=== PATIENT | male | born 2000 | race Caucasian/White ===

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

== ENCOUNTER 2020-02-15 16:17 | Emergency (ER) | payer BC, SELFPAY ==
[2020-02-15 16:54] VITALS: BP 131/76; PULSE 88; RESP 18; TEMP 36.6; O2SAT 100; BMI 19.2
--- NOTE | 2020-02-15 17:17 | HMH.EDUTC ---
[facility] [place] Disposition Clinical Impression: Headache Qualifiers: Headache type: unspecified Headache chronicity pattern: unspecified pattern Intractability: not intractable Qualified Code(s): R51 - Headache Disposition: Home, Self-Care Condition on Discharge: Good Instructions: DI for Migraine, DI for Headache Additional Instructions: Go home and take over the counter Benadryl and lay down and try to sleep off remainder of migraine headache *Follow up with Family Doctor for further evaluation and treatment of Migraines Return if needed Straight to ER if any life threatening symptoms Referrals: PCP,No [Primary Care Provider] - As needed Forms: Work/School Release Time of Disposition: 17:31 Medical Decision Making - Shayan Inquiry Pt receiving controlled substance: No Shayan was queried for this patient: No Vital Signs: 02/15/20 16:54 Temperature 97.8 F Temperature Source Oral Pulse Rate [Right Brachial] 88 Respiratory Rate 18 Blood Pressure [Right Arm] 131/76 Blood Pressure Mean [Right Arm] 94 Blood Pressure Source [Right Arm] Automatic Cuff Blood Pressure Position [Right Arm] Sitting 02 Sat by Pulse Oximetry 100 Oxygen Delivery Method Room Air Orders (Tests/Meds): ED MEDICATIONS Discontinued Medications Generic Name Dose Route Start Last Admin Trade Name Freq PRN Reason Stop Dose Admin Ketorolac Tromethamine 60 mg 02/15/20 17:11 02/15/20 17:15 Toradol 60mg/2ml Vial IM 02/15/20 17:12 60 mg ONCE ONE Administration Medical Decision Narrative: Patient states that migraine is almost gone after injection [facility] HPI - General Stated complaint: Migraine Time Seen by Provider: 02/15/20 17:17 Mode of Arrival: Ambulatory Source of Information: Patient Limitations: No Limitations Description of Symptoms (Recalled from Triage Doc. by RN): PATIENT C/O MIGRAINE X 2 DAYS HEENT Symptoms (Recalled from RN notes): Yes Resp Symptoms (Recalled from RN notes): No Skin Symptoms (Recalled from RN notes): No MS Symptoms (Recalled from RN notes): No Functional Status (Recalled from RN notes): WNL - History of Present Illness Provider Complaint: Patient states that he has a history of migraine headaches and has had one for the last couple of days States that he took some over the counter Tyelnol and it hasnt helped much State sthat last time he had to come in and get a shot - Related Data Allergies Allergy/AdvReac Type Severity Reaction Status Date / Time No Known Allergies Allergy Verified 07/14/18 08:43 - Worker's Comp Is this a Worker's Comp case?: No [facility] History - Hepatitis A Screen Drug use history?: No High risk sexual behaviors?: No History of sexually transmitted infection?: No Currently employed?: No Childcare worker?: No Do you have indoor plumbing?: Yes Do you have electricity?: Yes Attestation statement:: This patient has been screened for Hepatitis A risk factors. I have reviewed the patient's past medical history: Yes Medical History: Reports:: Anxiety, Depression Denies:: Cancer, Diabetes Mellitus Type 1, Diabetes Mellitus Type 2, MRSA Other Medical History: Reports: Other Comment: ANGER ISSUES Other Surgeries: Yes: No Previous Surgery, Other Amputation: No Fractures: No Comment: Oral surgery - Social History Smoking Status: Current every day smoker Tobacco Type: cigarettes # Packs/Day (cigarettes): 1 #Yrs smoked (if former smoker): 2 Alcohol Intake: never Alcohol Intake Frequency:: other Substance Use Type: denies use Occupational Status: other Housing: apartment Household Members: family - Psychiatric History Pschychiatric History:: Reports:: Anxiety, Depression Family Hx:: No significant family history ROS Obtained: Yes All systems reviewed & no additional complaints, Yes Systems reviewed as appropriate & no additional complaints - Constitutional Constitutional: Reports headache(s) - Eyes Eyes: Reports system reviewed and no additional complaint
[2020-02-15 17:33] VITALS: BP 131/76; PULSE 88; RESP 18; TEMP 36.6; O2SAT 100
== END 2020-02-15 17:35 | disposition home or self-care (01) ==
PROVIDERS: Emergency Provider Nurse Practitioner
DX: G43.909 Migraine, unspecified, not intractable, without status migrainosus (principal); F41.8 Other specified anxiety disorders; F17.210 Nicotine dependence, cigarettes, uncomplicated
CPT/HCPCS: 96372; 99201

== ENCOUNTER 2020-03-26 19:14 | Emergency (ER) | payer BC, SELFPAY ==
[2020-03-26 19:43] VITALS: BP 111/67; PULSE 103; RESP 16; TEMP 37; O2SAT 97; BMI 18.8
--- NOTE | 2020-03-26 19:46 | HMH.EDUTC ---
[facility] [place] Disposition Clinical Impression: Tonsillitis Disposition: Home, Self-Care Condition on Discharge: Good Instructions: Preventing the Spread of Coronavirus Discharge Instructions Prescriptions: Amoxicillin [Amoxicillin 875MG Tab] 875 mg PO Q12H #20 tab Transmission Status: Pending to [facility] # Promethazine/Dextromethorphan [Promethazine-Dm Syrup] 5 ml PO Q6HP PRN 10 Days #180 syrup PRN Reason: Cough Transmission Status: Pending to [facility] # Referrals: Michael Muñoz MD [Primary Care Provider] - Time of Disposition: 19:49 Medical Decision Making - Shayan Inquiry Pt receiving controlled substance: No - Lab Data Lab results reviewed: Yes: I reviewed the patient's lab results. Orders (Tests/Meds): ORDERS Category Date Time Status Covid-19 Nasal PCR ([facility]) Routine Lab 03/26/20 19:25 Ordered [facility] [place] HPI - General Stated complaint: cough, vomiting Time Seen by Provider: 03/26/20 19:46 - History of Present Illness Provider Complaint: Cough, sore throat, vomiting and diarrhea, fever since this am. He does smoke. Cough is productive. No known exposure to COVID19. Onset (ago): day(s) (1) Location: chest Relieving factors: none Exacerbating factors: none Associated symptoms: cough, fever/chills, nausea/vomiting Treatments prior to arrival: none - Related Data Previous Rx's Medication Instructions Recorded Amoxicillin [Amoxicillin 875MG 875 mg PO Q12H #20 tab 03/26/20 Tab] Promethazine/Dextromethorphan 5 ml PO Q6HP PRN 10 Days #180 syrup 03/26/20 [Promethazine-Dm Syrup] Allergies Allergy/AdvReac Type Severity Reaction Status Date / Time No Known Allergies Allergy Verified 07/14/18 08:43 [facility] History - Hepatitis A Screen Attestation statement:: This patient has been screened for Hepatitis A risk factors. I have reviewed the patient's past medical history: Yes Medical History: Reports:: Anxiety, Depression Denies:: Cancer, Diabetes Mellitus Type 1, Diabetes Mellitus Type 2, MRSA Other Medical History: Reports: Other Comment: ANGER ISSUES Other Surgeries: Yes: No Previous Surgery, Other Amputation: No Fractures: No Comment: Oral surgery - Social History Smoking Status: Current every day smoker Tobacco Type: cigarettes # Packs/Day (cigarettes): 1 #Yrs smoked (if former smoker): 2 Alcohol Intake: never Alcohol Intake Frequency:: other Substance Use Type: denies use Occupational Status: other Housing: apartment Household Members: family - Psychiatric History Pschychiatric History:: Reports:: Anxiety, Depression Family Hx:: No significant family history ROS Obtained: Yes All systems reviewed & no additional complaints - Constitutional Constitutional: Reports body ache, Reports chills, Reports fever(s) - ENT Ears, Nose, Mouth, and Throat: Reports sore throat - Respiratory Respiratory: Yes cough - Gastrointestinal Gastrointestingal: Reports: diarrhea, vomiting Physical Exam - General General appearance: alert, in no apparent distress - Head Head exam: atraumatic, normocephalic, normal inspection - Eye Eye exam: Present: normal appearance, PERRL, EOMI - ENT ENT exam: Present: normal exam, normal oropharynx, mucous membranes moist, TM's normal bilaterally, normal external ear exam - Expanded ENT Exam Throat exam: Present: tonsillar erythema, tonsillomegaly - Neck Neck exam: Present: normal inspection, full ROM, trachea midline. Absent: meningismus, lymphadenopathy - Chest Chest inspection: Present: normal inspection, symmetric chest wall rise. Absent: tenderness - Respiratory Respiratory exam: Present: wheezes, other (croupy cough). Absent: respiratory distress - Cardiovascular Cardiovascular exam: Present: regular rate, normal rhythm. Absent: JVD - Abdominal Exam Abdominal exam: Present: soft, normal bowel sounds. Absent: distention, tenderness, guarding - Extremities Exam Extremities
[2020-03-26 19:56] LABS: UTC Strep Screen (Rapid) Negative (Negative)
[2020-03-26 20:12] VITALS: BP 111/67; PULSE 103; RESP 16; TEMP 37; O2SAT 97
--- NOTE | 2020-03-27 14:54 | PC.NURSE ---
0942 PATIENT NOTIFIED OF NEG COVID TEST RESULTS
== END 2020-03-26 20:12 | disposition home or self-care (01) ==
PROVIDERS: Emergency Provider Physician Assistant; PCP Emergency Medicine
DX: Z20.828 Contact with and (suspected) exposure to other viral communicable diseases (principal); J03.90 Acute tonsillitis, unspecified; F41.8 Other specified anxiety disorders
CPT/HCPCS: 87880; 99201; U0003

== ENCOUNTER 2020-08-10 11:43 | Emergency (ER) | payer BC, SELFPAY ==
[2020-08-10 11:53] VITALS: BP 119/74; PULSE 89; RESP 18; TEMP 36.8; O2SAT 97; BMI 19.6
[2020-08-10 12:01] VITALS: BP 120/73; PULSE 91; RESP 15; TEMP 36.6
--- NOTE | 2020-08-10 12:02 | HMH.EDUTC ---
[facility] [place] Disposition Clinical Impression: Encounter for laboratory testing for COVID-19 virus Disposition: Home, Self-Care Condition on Discharge: Good Instructions: DI for COVID-19 (Suspected or Confirmed ), Coronavirus Disease 2019, Preventing the Spread of Coronavirus Discharge Instructions Additional Instructions: *Monitor Temp, Over the counter Motrin or Tylenol as directed/as needed Tylenol every 4 hours and Motrin every 6 hours (as long as your family doctor has told you that you can take it) for fever or pain. and straight to ER if unable to lower temp less than 101.0 after medication given * Follow up IMMEDIATELY for new or worsening symptoms or no Noticeable improvement over the next 48-72 hours. 911 for difficulty breathing or swallowing You were tested for today for COVID19 your test result should be back in the next 24-48 hours, you may call to the [facility] to see if your test results are back in the next 48 hours [phone] [facility] hours are 9am-9pm You was given a handout with instructions for Self Quarantine and Self isolation for while you wait on test results and what to do if they are positive If you are positive the Health Dept will be contacting you also Referrals: Micheal Muñoz MD [Primary Care Provider] - As needed Forms: Work/School Release Time of Disposition: 12:04 Medical Decision Making - Shayan Inquiry Pt receiving controlled substance: No Shayan was queried for this patient: No Vital Signs: 08/10/20 11:53 08/10/20 12:01 Temperature 98.2 F 98 F Temperature Source Oral Pulse Rate 91 H Pulse Rate [Right] 89 Respiratory Rate 18 15 Blood Pressure 120/73 Blood Pressure [Right Arm] 119/74 Blood Pressure Mean [Right Arm] 89 Blood Pressure Source [Right Arm] Automatic Cuff Blood Pressure Position [Right Arm] Sitting 02 Sat by Pulse Oximetry 97 Oxygen Delivery Method Room Air Orders (Tests/Meds): ORDERS Category Date Time Status Covid-19 Nasal PCR ([facility]) Routine Lab 08/10/20 11:57 Ordered [facility] HPI - General Stated complaint: sore throat,diarrhea Time Seen by Provider: 08/10/20 12:02 Mode of Arrival: Ambulatory Source of Information: Patient Limitations: No Limitations Description of Symptoms (Recalled from Triage Doc. by RN): pt is having a dry cough and diarhea. work is requiring him to get a covid test. HEENT Symptoms (Recalled from RN notes): No Resp Symptoms (Recalled from RN notes): Yes (cough) Skin Symptoms (Recalled from RN notes): No MS Symptoms (Recalled from RN notes): No Functional Status (Recalled from RN notes): na - History of Present Illness Provider Complaint: Patient state that yesterday at work he had a little cough and some diarrhea State that today his symptoms are gone but work will not let him return until he gets COVID tested States that he is no longer having cough and diarrhea and just needs COVID test - Related Data Previous Rx's Medication Instructions Recorded Amoxicillin [Amoxicillin 875MG 875 mg PO Q12H #20 tab 03/26/20 Tab] Promethazine/Dextromethorphan 5 ml PO Q6HP PRN 10 Days #180 syrup 03/26/20 [Promethazine-Dm Syrup] Allergies Allergy/AdvReac Type Severity Reaction Status Date / Time No Known Allergies Allergy Verified 07/14/18 08:43 - Worker's Comp Is this a Worker's Comp case?: No [facility] History - Hepatitis A Screen Drug use history?: No High risk sexual behaviors?: No History of sexually transmitted infection?: No Currently employed?: No Childcare worker?: No Do you have indoor plumbing?: Yes Do you have electricity?: Yes Attestation statement:: This patient has been screened for Hepatitis A risk factors. I have reviewed the patient's past medical history: Yes Medical History: Reports:: Anxiety, Depression Denies:: Cancer, Diabetes Mellitus Type 1, Diabetes Mellitus Type 2, MRSA Other Medical History: Reports: Other Comment: ANGER ISSUES Other Surgeries: Yes: No Previous Surgery, Other [place]
== END 2020-08-10 12:08 | disposition home or self-care (01) ==
PROVIDERS: Emergency Provider Nurse Practitioner; PCP Emergency Medicine
DX: Z20.822 Contact with and (suspected) exposure to COVID-19 (principal); J02.9 Acute pharyngitis, unspecified; F41.8 Other specified anxiety disorders; F17.210 Nicotine dependence, cigarettes, uncomplicated
CPT/HCPCS: 99202; G0463; U0003

== ENCOUNTER 2021-01-25 09:16 | Emergency (ER) | payer BC, SELFPAY ==
[2021-01-25 10:20] VITALS: BP 115/62; PULSE 81; RESP 18; TEMP 37.1; O2SAT 98; BMI 19.2
--- NOTE | 2021-01-25 10:26 | HMH.EDUTC ---
[facility] [place] Disposition Clinical Impression: Encounter for laboratory testing for COVID-19 virus Sinusitis Qualifiers: Sinusitis location: unspecified location Chronicity: unspecified Qualified Code(s): J32.9 - Chronic sinusitis, unspecified Disposition: Home, Self-Care Condition on Discharge: Good Instructions: DI for COVID-19 (Suspected or Confirmed ), Preventing the Spread of Coronavirus Discharge Instructions Additional Instructions: *Monitor Temp, Over the counter Motrin or Tylenol as directed/as needed Tylenol every 4 hours and Motrin every 6 hours (as long as your family doctor has told you that you can take it) for fever or pain. and straight to ER if unable to lower temp less than 101.0 after medication given Follow up IMMEDIATELY for new or worsening symptoms or no Noticeable improvement over the next 48-72 hours. 911 for difficulty breathing or swallowing You were tested for today for COVID19 your test result should be back in the next 24-48 hours, you was given instructions on how to [facility] the [facility] for your results. If you do not have internet or access you may call the [facility]. You was given a handout with instructions for Self Quarantine and Self isolation for while you wait on test results and what to do if they are positive If you are positive the Health Dept will be contacting you also Make sure to take your Vitamins Vit. C Vit D and Zinc if you can take them Prescriptions: Amoxicillin/Potassium Clav [Augmentin 875-125 Tablet] 1 tab PO Q12H 7 Days #14 tab Transmission Status: Pending to [facility] Brompheniramine/Pseudoephed/Dm [Bromfed Dm Cough Syrup] 5 - 10 ml PO Q46H PRN #200 ml PRN Reason: Cough Transmission Status: Pending to [facility] [id number] methylPREDNISolone [Medrol 4mg tab] 4 mg PO DIRECTED #21 tab Transmission Status: Pending to [facility] Referrals: Michael Muñoz MD [Primary Care Provider] - As needed Forms: Work/School Release Time of Disposition: 10:32 Medical Decision Making - Shayan Inquiry Pt receiving controlled substance: No Shayan was queried for this patient: No Vital Signs: 01/25/21 10:20 Temperature 98.8 F Temperature Source Oral Pulse Rate [Right] 81 Respiratory Rate 18 Blood Pressure [Right Arm] 115/62 Blood Pressure Mean [Right Arm] 79 02 Sat by Pulse Oximetry 98 Orders (Tests/Meds): ORDERS Category Date Time Status Covid-19 Nasal PCR ([facility]) Routine Lab 01/25/21 10:15 Received [facility] HPI - General Stated complaint: headache,runny nose, covid test Time Seen by Provider: 01/25/21 10:26 Description of Symptoms (Recalled from Triage Doc. by RN): COVID TEST, COUGH & URIARTE X1 WEEK, NO EXPOSURE, NEED COVID TEST FOR WORK HEENT Symptoms (Recalled from RN notes): No Resp Symptoms (Recalled from RN notes): No Skin Symptoms (Recalled from RN notes): No MS Symptoms (Recalled from RN notes): No Functional Status (Recalled from RN notes): WNL - History of Present Illness Provider Complaint: Patient states that he has been having sinus congestion and pressure for over a week with cough and sore throat State that he thought it was just allergies so has been taking benadryl States that drainage from nose is yellowish green and feesl like it causes pressure behind his eyes State that he needed to come in and get a COVID test for work - Related Data Previous Rx's Medication Instructions Recorded amoxicillin 500 mg tablet 500 mg PO BID 10 Days #20 tab 09/22/20 Amoxicillin/Potassium Clav 1 tab PO Q12H 7 Days #14 tab 01/25/21 [Augmentin 875-125 Tablet] Brompheniramine/Pseudoephed/Dm 5 - 10 ml PO Q46H PRN #200 ml 01/25/21 [Bromfed Dm Cough Syrup] methylPREDNISolone [Medrol 4mg 4 mg PO DIRECTED #21 tab 01/25/21 tab] Allergies Allergy/AdvReac Type Severity Reaction Status Date / Time No Known Allergies Allergy Verified 01/25/21 10:24 - Worker's Comp Is this a Worker's Comp case?: No [facility] Histo
[2021-01-25 10:51] VITALS: BP 115/62; PULSE 81; RESP 18; TEMP 37.1; O2SAT 98
== END 2021-01-25 10:52 | disposition home or self-care (01) ==
PROVIDERS: Emergency Provider Nurse Practitioner; PCP Emergency Medicine
DX: Z20.822 Contact with and (suspected) exposure to COVID-19 (principal)
CPT/HCPCS: 99202; G0463; U0003

== ENCOUNTER → 2021-01-30 20:26 | Outpatient (CLI) | payer BC, SELFPAY | PROVIDERS: Visit Provider Nurse Practitioner Family | DX: Z20.822 Contact with and (suspected) exposure to COVID-19 (principal) | CPT/HCPCS: C9803; U0003; U0005 ==

== ENCOUNTER 2021-05-19 15:54 | Emergency (ER) | payer OTHER, BC, SELFPAY ==
[2021-05-19 16:04] VITALS: PULSE 93; RESP 18; O2SAT 98; BMI 19.1
[2021-05-19 17:00] VITALS: BP 130/78; PULSE 93; RESP 18; TEMP 36.9; O2SAT 98; BMI 19.2
--- NOTE | 2021-05-19 17:30 | HMH.EDUTC ---
[facility] Disposition Clinical Impression: Laceration of right thumb Qualifiers: Encounter type: initial encounter Damage to nail status: without damage Foreign body presence: without foreign body Qualified Code(s): S61.011A - Laceration without foreign body of right thumb without damage to nail, initial encounter Puncture wound of right thumb Qualifiers: Encounter type: initial encounter Qualified Code(s): S61.031A - Puncture wound without foreign body of right thumb without damage to nail, initial encounter Disposition: Home, Self-Care Condition on Discharge: Good Instructions: How to Care for a Laceration After Repair, DI for Laceration Repair -- Simple, DI for Puncture Wound Additional Instructions: Keep the wound clean and dry. Keep a dressing on it if you are going to be getting it dirty. Watch the for signs of infection, such as redness, swelling, drainage, fever. etc. Take tylenol or ibuprofen for pain. Follow up with your regular doctor. Return in 10 to 12 days to have the sutures removed. GO TO THE ER FOR ANY WORSENING SYMPTOMS OR CONCERNS. Prescriptions: cephALEXin [cephALEXin 500mg capsule] 500 mg PO Q6H 10 Days #40 cap Transmission Status: Received by [facility] Referrals: Michael Muñoz MD [Primary Care Provider] - Time of Disposition: 19:13 Medical Decision Making - Medical Records Medical records reviewed: No: I reviewed the patient's medical records. - Shayan Inquiry Pt receiving controlled substance: No Vital Signs: 05/19/21 16:04 05/19/21 17:00 05/19/21 19:02 Temperature 98.4 F 98.4 F Temperature Source Oral Pulse Rate 93 H Pulse Rate [Left Radial] 93 H 93 H Respiratory Rate 18 18 18 Blood Pressure 130/78 Blood Pressure [Left Arm] 130/78 Blood Pressure Mean [Left Arm] 95 Blood Pressure Source [Left Arm] Automatic Cuff Blood Pressure Position [Left Arm] Sitting 02 Sat by Pulse Oximetry 98 98 Oxygen Delivery Method Room Air Room Air Orders (Tests/Meds): ED MEDICATIONS Discontinued Medications Generic Name Dose Route Start Last Admin Trade Name Freq PRN Reason Stop Dose Admin Cephalexin HCl 500 mg 05/19/21 19:02 05/19/21 19:16 Cephalexin 500mg Capsule PO 05/19/21 19:03 500 mg ONCE ONE Administration Tetanus/Reduced Diphtheria/Acell Pertussis 0.5 ml 05/19/21 17:16 05/19/21 17:20 Tet/Diphth/Pert-Adult 0.5ml Syringe IM 05/19/21 17:17 0.5 ml .ONCE ONE Administration Medical Decision Narrative: He refused an x-ray of his hand [facility] HPI - General Stated complaint: WC @1230 lac to R thumb Time Seen by Provider: 05/19/21 17:30 Mode of Arrival: Ambulatory Source of Information: Patient Limitations: No Limitations Description of Symptoms (Recalled from Triage Doc. by RN): PATIENT C/O LACERATION TO RIGHT THUMB AFTER GETTING IT CAUGHT IN CLAMP AT WORK. PATIENT IS NOT UP TO DATE ON TDAP HEENT Symptoms (Recalled from RN notes): No Resp Symptoms (Recalled from RN notes): No Skin Symptoms (Recalled from RN notes): Yes MS Symptoms (Recalled from RN notes): No Functional Status (Recalled from RN notes): WNL - History of Present Illness Provider Complaint: He was at work. While putting a metal clamp on a hose, the end of the metal clamp went through the side of his thumb and then came out about 1 cm on around the thumb. This created 2 lacerations. He denies that there could be any foreign body in the wound. He denies there was any crushing or pinching injury to his thumb. His tetanus immunization is not up to date. - Related Data Previous Rx's Medication Instructions Recorded Amoxicillin/Potassium Clav 1 tab PO Q12H 7 Days #14 tab 01/25/21 [Augmentin 875-125 Tablet] Brompheniramine/Pseudoephed/Dm 5 - 10 ml PO Q46H PRN #200 ml 01/25/21 [Bromfed Dm Cough Syrup] methylPREDNISolone [Medrol 4mg 4 mg PO DIRECTED #21 tab 01/25/21 tab] cephALEXin [cephALEXin 500mg 500 mg PO Q6H 10 Days #40 c
[2021-05-19 19:02] VITALS: BP 130/78; PULSE 93; RESP 18; TEMP 36.9; O2SAT 98
== END 2021-05-19 19:19 | disposition home or self-care (01) ==
PROVIDERS: Emergency Provider Nurse Practitioner Family; PCP Emergency Medicine
DX: S61.011A Laceration without foreign body of right thumb without damage to nail, initial encounter (principal); W22.8XXA Striking against or struck by other objects, initial encounter; Y92.63 Factory as the place of occurrence of the external cause; Y99.0 Civilian activity done for income or pay; Z23 Encounter for immunization
CPT/HCPCS: 12001; 90471; 90715; 99202; G0463

== ENCOUNTER → 2021-06-05 09:46 | Outpatient (CLI) | payer BC, SELFPAY | PROVIDERS: PCP Emergency Medicine; Visit Provider Nurse Practitioner | DX: U07.1 COVID-19 (principal) | CPT/HCPCS: C9803; U0003; U0005 ==

== ENCOUNTER 2022-03-29 03:45 | Emergency (ER) | payer BC, SELFPAY ==
[2022-03-29 03:48] VITALS: BP 129/83; PULSE 105; RESP 19; TEMP 36.8; O2SAT 100; BMI 18.4
[2022-03-29 04:02] VITALS: BMI 18.4
--- NOTE | 2022-03-29 04:03 | CT_ITS ---
PROCEDURE INFORMATION: Exam: CT Orbits Without Contrast Exam date and time: 03/29/2022 5:13 AM Age: 22 years old Clinical indication: Injury or trauma; Blunt trauma (contusions or hematomas) and swelling; Lip/oral cavity; Patient HX: Swelling to upper/lower lips, C/O pain around nose and lips. ; Additional info: Hit in face with board TECHNIQUE: Imaging protocol: Computed tomography of the orbits without contrast. Radiation optimization: All CT scans at this facility use at least one of these dose optimization techniques: automated exposure control; mA and/or kV adjustment per patient size (includes targeted exams where dose is matched to clinical indication); or iterative reconstruction. COMPARISON: No relevant prior studies available. FINDINGS: Paranasal sinuses: No fluid level in the paranasal sinuses. Mastoid air cells: No evidence of mastoid effusion. Orbital cavities: See below Bones/joints: The mandible, maxilla, paranasal sinuses, pterygoid plates, nasal bones, bony orbital patiño, zygomatic arches, temporal bones, bones of the skull base are unremarkable without evidence of a displaced fracture. Unremarkable temporomandibular joints. Soft tissues: Perioral/lip hematoma-laceration with punctate radiopaque debris. Note is made of dental caries. Tonsillar enlargement with numerous mild to moderately enlarged reactive lymph nodes in the neck. IMPRESSION: 1. Perioral/lip hematoma without evidence of acute maxillofacial bony injury. 2. Note is made of dental caries.
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
[2022-03-29 05:18] VITALS: BP 135/78; PULSE 88; RESP 17; TEMP 36.8; O2SAT 99
== END 2022-03-29 05:19 | disposition home or self-care (01) ==
PROVIDERS: Emergency Provider Emergency Medicine; PCP Emergency Medicine
DX: S00.511A Abrasion of lip, initial encounter (principal); K03.81 Cracked tooth; R04.0 Epistaxis; H53.8 Other visual disturbances; F17.210 Nicotine dependence, cigarettes, uncomplicated; Y00.XXXA Assault by blunt object, initial encounter
CPT/HCPCS: 70486; 99285